=== PATIENT | male | born 1970 | race Native Hawaiian/Other Pacific Islander ===

== ENCOUNTER 2020-03-07 17:10 | Inpatient (IN) | payer OTHER ==
[~2020-03-07] VITALS: Ht 180.3 cm; Wt 83.3 kg
[2020-03-07 18:56] LABS: PLATELET COUNT 178 K/uL (142-355)
[2020-03-07 19:23] VITALS: BP 137/67; TEMP 98.6; Ht 180.3 cm; Wt 83.3 kg
[2020-03-07 19:27] LABS: SODIUM 132 mmol/L (136-145)
[2020-03-07 20:00] VITALS: BP 137/67; TEMP 98.6
[2020-03-08] VITALS: BP 112/65; TEMP 98.4
[2020-03-08 03:54] VITALS: BP 118/61; TEMP 98.6
[2020-03-08 08:00] VITALS: BP 126/72; TEMP 97.2
[2020-03-08 10:48] LABS: PLATELET COUNT 205 K/uL (142-355)
[2020-03-08 11:09] LABS: POTASSIUM 3.4 mmol/L (3.6-5.2)
[2020-03-08 12:00] VITALS: BP 124/76; TEMP 97.4
[2020-03-08 16:00] VITALS: BP 135/76; TEMP 97.9
[2020-03-08 20:00] VITALS: BP 139/80; TEMP 98.6
[2020-03-09 00:08] VITALS: BP 125/60; TEMP 98.6
[2020-03-09 04:01] VITALS: BP 138/63; TEMP 98.9
[2020-03-09 05:20] LABS: PLATELET COUNT 171 K/uL (142-355)
[2020-03-09 05:54] LABS: POTASSIUM 3.7 mmol/L (3.6-5.2)
[2020-03-09 08:00] VITALS: BP 148/74; TEMP 98.5
[2020-03-09 12:00] VITALS: BP 121/65; TEMP 98.7
[2020-03-09 20:00] VITALS: BP 143/77; TEMP 97.7
[2020-03-10] VITALS: BP 149/75; TEMP 98.7
[2020-03-10 04:00] VITALS: BP 136/70; TEMP 98.3
[2020-03-10 04:11] LABS: PLATELET COUNT 174 K/uL (142-355)
[2020-03-10 04:41] LABS: POTASSIUM 3.7 mmol/L (3.6-5.2)
[2020-03-10 08:00] VITALS: BP 139/75; TEMP 98.1
[2020-03-10 12:00] VITALS: BP 160/75; TEMP 97.6
[2020-03-10] MEDS ORDERED: ONDA4TAB3 PO (13:34)
[2020-03-10] MEDS ORDERED: ORAZINC220 MG PO (13:35)
[2020-03-10] MEDS ORDERED: FAMOTIDINE40 MG PO (13:36)
[2020-03-10] MEDS ORDERED: [UNRECOGNIZED DRUG - OTHER] PO (13:43)
[2020-03-10] MEDS ORDERED: ASPI325T40 PO (13:44)
[2020-03-10] MEDS ORDERED: LANTUS SOL100 UNIT/M SC (13:47)
== END 2020-03-10 16:00 | disposition home or self-care (01) | DRG 179 ==
LOC: MED/SURG 17:10
PROVIDERS: ADMIT Family Medicine
DX: U07.1 COVID-19 (principal); R11.2 Nausea with vomiting, unspecified; R50.81 Fever presenting with conditions classified elsewhere; E11.9 Type 2 diabetes mellitus without complications; I10 Essential (primary) hypertension; E78.49 Other hyperlipidemia; F41.8 Other specified anxiety disorders
CPT/HCPCS: 36415; 36600; 80053; 81000; 82550; 82728; 82805; 83735; 84100; 84484; 85027; 85379; 87040; 87635; 93005; 94667; 94668; 94760; J0456; J1650; J1885; J2405; U00003

== ENCOUNTER 2022-10-07 09:34 | Outpatient (CLI) | payer BC ==
[~2022-10-07 09:34] MED LIST: ASPI325T40 PO; FAMOTIDINE40 MG PO; LANTUS SOL100 UNIT/M SC; ONDA4TAB3 PO; ORAZINC220 MG PO; [UNRECOGNIZED DRUG - OTHER] PO
== END 2022-10-07 21:56 | disposition home or self-care (01) ==
LOC: RESP 09:34
PROVIDERS: ATTEND Nurse Practitioner Family
DX: I10 Essential (primary) hypertension (principal)

== ENCOUNTER 2022-10-17 07:54 | Outpatient (CLI) | payer BC | END 2022-10-17 22:48 | disposition home or self-care (01) | LOC: NM 07:54 | PROVIDERS: ATTEND Nurse Practitioner Family | DX: I10 Essential (primary) hypertension (principal); Z79.899 Other long term (current) drug therapy | CPT/HCPCS: A9500 ==